=== PATIENT | female | born 1985 | race Caucasian/White ===

== ENCOUNTER 2016-07-19 08:44 | Outpatient (CLI) | payer BC ==
[2016-07-19 09:43] VITALS: BP 120/79
== END 2016-07-19 10:40 | disposition home or self-care (01) ==
LOC: TRG 08:44
PROVIDERS: ATTEND Specialist
DX: O77.9 Labor and delivery complicated by fetal stress, unspecified (principal); O47.9 False labor, unspecified; Z3A.00 Weeks of gestation of pregnancy not specified
CPT/HCPCS: 59025